=== PATIENT | male | born 1995 | race Hispanic/Latino ===

== ENCOUNTER 2019-03-09 21:17 | Emergency (ER) | payer SELFPAY ==
[2019-03-09] MEDS ORDERED: LIDOCAINE 1% MPF 5 ML VIAL ONE (21:35)
[2019-03-09] MEDS ORDERED: TETANUS & DIPHTHERIA TOX,ADULT 0.5 ML VIAL ONE (21:35)
[2019-03-09] MEDS ORDERED: DERMABOND SKIN ADHESIVE TOP ONE (22:04)
--- NOTE | 2019-03-09 22:22 | ER ---
Nurse's Notes [facility] Name: Kirk Lara Age: 23 yrs Sex: Male : 1995 Arrival Date: 03/09/2019 Time: 21:20 Bed 5 Private MD: Diagnosis: Laceration without foreign body of left forearm Presentation: 03/09 21:33 Presenting complaint: Patient states: Reports he was playing tag, tripped and cut his ea left forearm on glass. Transition of care: patient was not received from another setting of care. Complicating Factors: There are no complicating factors for this patient. Onset of symptoms was March 09, 2019. Risk Assessment: Do you want to hurt yourself or someone else? Patient reports no desire to harm self or others. Initial Sepsis Screen: Does the patient meet any 2 criteria? No. Patient's initial sepsis screen is negative. Does the patient have a suspected source of infection? No. Patient's initial sepsis screen is negative. Care prior to arrival: pt holding pressure to area. 21:33 Method Of Arrival: Ambulatory ea 21:33 Acuity: JAM 4 ea Triage Assessment: 21:36 General: Appears in no apparent distress. Behavior is calm, cooperative, appropriate ea for age. Pain: Complains of pain in dorsal aspect of left forearm. Neuro: Level of Consciousness is awake, alert, obeys commands, Oriented to person, place, time, situation. Cardiovascular: Patient's skin is warm and dry. Respiratory: Airway is patent Respiratory effort is even, unlabored, Respiratory pattern is regular, symmetrical. Derm: Skin is pink, warm \T\ dry. Injury Description: Laceration sustained to dorsal aspect of left forearm is superficial, 0.5 to 2.5 cm long, was sustained 30-60 minutes ago. Historical: - Allergies: 21:35 No Known Allergies; ea - Home Meds: 21:35 None [Active]; ea - PMHx: 21:35 None; ea - PSHx: 21:35 None; ea - Immunization history:: Adult Immunizations up to date. - Social history:: Smoking status: Patient/guardian denies using tobacco. - Ebola Screening: : No symptoms or risks identified at this time. Screenin:35 Abuse screen: Denies threats or abuse. Nutritional screening: No deficits noted. ea Tuberculosis screening: No symptoms or risk factors identified. Fall Risk None identified. Assessment: 21:36 Reassessment: see triage assessment. ea 22:27 Reassessment: Patient and/or family updated on plan of care and expected duration. Pain ea level reassessed. Patient is alert, oriented x 3, equal unlabored respirations, skin warm/dry/pink. 22:35 Reassessment: Patient and/or family updated on plan of care and expected duration. Pain ea level reassessed. Patient is alert, oriented x 3, equal unlabored respirations, skin warm/dry/pink. Discharge instruction given to patient, verbalized the understanding of instruction. Pt left ED ambulatory accompanied by family, tolerating well. Vital Signs: 21:37 BP 122 / 78; Pulse 86; Resp 18; Temp 97.6; Pulse Ox 98% on R/A; Weight 117.93 kg; ea Height 5 ft. 11 in. (180.34 cm); 22:00 BP 114 / 76; Pulse 76; Resp 18; Pulse Ox 98% ; ea 21:37 Body Mass Index 36.26 (117.93 kg, 180.34 cm) ea ED Course: 21:20 Patient arrived in ED. cf2 21:30 Papi Castellanos NP is PHCP. pm1 21:30 Eric Stern MD is Attending Physician. pm1 21:32 Angelina Washington is Primary Nurse. cc3 21:35 Triage completed. ea 21:36 Patient has correct armband on for positive identification. Bed in low position. Call ea light in reach. Side rails up X2. 21:36 Arm band placed on right wrist. Patient placed in an exam room, on a stretcher, on ea pulse oximetry. 21:50 Forearm Left XRAY In Process Unspecified. EDMS 22:27 Assist provider with laceration repair on dorsal aspect of left forearm that was ea between 2.6 to 7.5 cm using sutures. Set up tray. Performed by Eric Stern MD Patient tolerated well. 22:36 Patient did not have IV access during this emergency room visit. ea Administered Medications: 21:45 Drug: Tetanus-Diphtheria Toxoid Adult 0.5 ml {Lab Nurse: [employer]. Exp: cc3 10/09/2020. Lot #: [id number]. } Route: IM; Site: right deltoid; 22:26 Follow up: Response: No adverse reaction ea 22:10 Drug: Lidocaine (1 %) 5 ml {Note: administered by provider.} Volume: 5 ml; Route: ea Infiltration; Outcome: : Discharge ordered by . pm1 22:35 Discharged to home ambulatory, with family. ea 22:35 Condition: stable 22:35 Discharge instructions given to patient, Instructed on discharge instructions, follow up and referral plans. medication usage, Demonstrated understanding of instructions, follow-up care, medications, Prescriptions given X 1. 22:36 Patient left the ED. ea Signatures: Dispatcher [employer] EDMS Papi Castellanos NP MAGNETIC TESTER pm1 Damari Bolivar RN RN Angelina Duron cc3 Sergey Calvillo 2
--- NOTE | 2019-03-09 22:23 | EDPHYS ---
Physician Documentation [facility] Name: Kirk Lara Age: 23 yrs Sex: Male : 1995 Arrival Date: 03/09/2019 Time: 21:20 Bed 5 Private MD: ED Physician Eric Stern HPI: 03/09 21:47 This 23 yrs old Male presents to ER via Ambulatory with complaints of pm1 Laceration To Left Arm. 21:47 The patient has a laceration related to: playing, occurred at home, and there are no pm1 complicating factors. The injury was accidental. The laceration(s) is(are) located on the dorsal aspect of left forearm. Onset: The symptoms/episode began/occurred just prior to arrival. Associated signs and symptoms: The patient has no apparent associated signs or symptoms, Pertinent negatives: deformity, heavy bleeding, numbness distal to injury, suspected foreign body. The patient has not experienced similar symptoms in the past. The patient has not recently seen a physician. Patient was playing tag with family and accidentally put his left arm through the glass door. No numbness or tingling to left hand. Historical: - Allergies: 21:35 No Known Allergies; ea - Home Meds: 21:35 None [Active]; ea - PMHx: 21:35 None; ea - PSHx: 21:35 None; ea - Immunization history:: Adult Immunizations up to date. - Social history:: Smoking status: Patient/guardian denies using tobacco. - Ebola Screening: : No symptoms or risks identified at this time. ROS: 21:47 Constitutional: Negative for fever, chills, and weight loss, Neck: Negative for injury, pm1 pain, and swelling, Cardiovascular: Negative for chest pain, palpitations, and edema, Respiratory: Negative for shortness of breath, cough, wheezing, and pleuritic chest pain, Abdomen/GI: Negative for abdominal pain, nausea, vomiting, diarrhea, and constipation, Back: Negative for injury and pain, MS/Extremity: Negative for injury and deformity. 21:47 Skin: Positive for laceration(s), of the dorsal aspect of left forearm. 21:47 All other systems are negative. Exam: 21:47 Constitutional: This is a well developed, well nourished patient who is awake, alert, pm1 and in no acute distress. Head/Face: Normocephalic, atraumatic. Chest/axilla: Normal chest wall appearance and motion. Nontender with no deformity. No lesions are appreciated. Cardiovascular: Regular rate and rhythm with a normal S1 and S2. No gallops, murmurs, or rubs. Normal PMI, no JVD. No pulse deficits. Respiratory: Lungs have equal breath sounds bilaterally, clear to auscultation and percussion. No rales, rhonchi or wheezes noted. No increased work of breathing, no retractions or nasal flaring. Back: No spinal tenderness. No costovertebral tenderness. Full range of motion. 21:47 Skin: Appearance: normal except for affected area, injury, laceration(s), the wound is approximately 8 cm(s), of the dorsal aspect of left forearm, that can be described as no foreign body, irregular, with skin tear. Vital Signs: 21:37 BP 122 / 78; Pulse 86; Resp 18; Temp 97.6; Pulse Ox 98% on R/A; Weight 117.93 kg; ea Height 5 ft. 11 in. (180.34 cm); 22:00 BP 114 / 76; Pulse 76; Resp 18; Pulse Ox 98% ; ea 21:37 Body Mass Index 36.26 (117.93 kg, 180.34 cm) ea Laceration: 22:20 Wound Repair of 8cm ( 3.1in ) subcutaneous laceration to dorsal aspect of left forearm. pm1 Irregularly shaped.. Distal neuro/vascular/tendon intact. Anesthesia: Local anesthetic administered with 5 mls of 1% lidocaine. Wound prep: Extensive cleansing with betadine by nurse, Wound irrigation with saline by nurse, Wound explored extensively, Copious irrigation. Skin closed with 9 1-0 Prolene using simple sutures and sterile technique. Skin closed with 1-0 Prolene using simple sutures and sterile technique. Dressed with non-adherent dressing. Patient tolerated well. MDM: 21:31 Patient medically screened. pm1 22:20 Data reviewed: vital signs. Data interpreted: Pulse oximetry: on room air is 98 %. pm1 Interpretation: normal. Counseling: I had a detailed discussion with the patient and/or guardian regarding: the historical points, exam findings, and any diagnostic results supporting the discharge/admit diagnosis, radiology results, the need for outpatient follow up, suture removal in 10-14 days, to return to the emergency department if symptoms worsen or persist or if there are any questions or concerns that arise at home. 03/09 21:31 Order name: Forearm Left XRAY pm1 03/09 21:31 Order name: Prolene, Sutures; Complete Time: 22:26 pm1 03/09 21:31 Order name: Dressing - Wound; Complete Time: 22:26 pm1 03/09 21:31 Order name: Gloves, Sterile; Complete Time: 21:44 pm1 03/09 21:31 Order name: Setup Suture Tray; Complete Time: 21:44 pm1 Administered Medications: 21:45 Drug: Tetanus-Diphtheria Toxoid Adult 0.5 ml {[employer] Architect: [employer]. Exp: cc3 10/09/2020. Lot #: [id number]. } Route: IM; Site: right deltoid; 22:26 Follow up: Response: No adverse reaction ea 22:10 Drug: Lidocaine (1 %) 5 ml {Note: administered by provider.} Volume: 5 ml; Route: ea Infiltration; Disposition: 03/09/19 22:22 Discharged to Home. Impression: Laceration without foreign body of left forearm. - Condition is Stable. - Discharge Instructions: Laceration Care, Adult. - Prescriptions for Keflex 500 mg Oral Capsule - take 1 capsule by ORAL route every 12 hours for 10 days; 20 capsule. - Medication Reconciliation Form, Thank You Letter, Antibiotic Education, Prescription Opioid Use form. - Follow up: Emergency Department; When: As needed; Reason: Worsening of condition. Follow up: Private Physician; When: 10 - 14 days; Reason: Wound Recheck, Recheck today's complaints, Continuance of care, Staple/Suture removal, Re-evaluation by your physician. - Problem is new. - Symptoms have improved. Addendum: 03/10/2019 22:48 Co-signature as Attending Physician, Eric Stern MD. g s Signatures: Dispatcher [employer] EDMS Papi Castellanos, SALES MARKETING SALES MARKETING pm1 Damari Bolivar, Eric Medina RN, ea, MD MD gs Cordel, Charlene cc3 Corrections: (The following items were deleted from the chart) 03/09 22:36 22:22 03/09/2019 22:22 Discharged to Home. Impression: Laceration without foreign body ea of left forearm. Condition is Stable. Forms are Medication Reconciliation Form, Thank You Letter, Antibiotic Education, Prescription Opioid Use. Follow up: Emergency Department; When: As needed; Reason: Worsening of condition. Follow up: Private Physician; When: 10 - 14 days; Reason: Wound Recheck, Recheck today's complaints, Continuance of care, Staple/Suture removal, Re-evaluation by your physician. Problem is new. Symptoms have improved. pm1
[2019-03-09 22:41] VITALS: TEMP 97.6; O2SAT 98
[2019-03-09 22:42] VITALS: BP 114/76
--- NOTE | 2019-03-10 08:02 | RAD REPORT ---
EXAM DESCRIPTION: RAD - Forearm Left - 03/09/2019 9:53 pm CLINICAL HISTORY: Left arm pain, laceration COMPARISON: None. FINDINGS: No fracture is identified. There is no dislocation or periosteal reaction noted. At the laceration site mid left forearm no foreign body seen. IMPRESSION: No left forearm bony abnormality. No foreign body.
== END 2019-03-09 22:36 | disposition home or self-care (01) ==
LOC: ER 21:17
PROC: 0JQH0ZZ Repair Left Lower Arm Subcutaneous Tissue and Fascia, Open Approach (ICD-10-PCS; principal; 2019-03-09)
DX: S51.812A Laceration without foreign body of left forearm, initial encounter (principal); W25.XXXA Contact with sharp glass, initial encounter; Y93.89 Activity, other specified; Y92.009 Unspecified place in unspecified non-institutional (private) residence as the place of occurrence of the external cause; Z23 Encounter for immunization
CPT/HCPCS: 90471; 90714; 99284